=== PATIENT | female | born 1945 | race Caucasian/White ===

== ENCOUNTER 2017-02-05 03:20 | Emergency (ER) | payer OTHER ==
[~2017-02-05] VITALS: Ht 160 cm; Wt 111.9 kg
[~2017-02-05 03:20] MED LIST: AMLODIPINE BESY10 MG PO; ASPIRIN EC325 MG PO; CELECOXIB200 MG PO; EFFEXOR XR75 MG PO; HYDROCODON-ACE1 EAC7 PO; IRON325 M1 PO; KEFLEX500 MG PO; LO-DOSE ASPIRIN81 M1 PO; NORCO 5/3251 TABLET PO; TYLENOL EXTRA500 MG PO; XANAX0.5 MG PO
[2017-02-05] MEDS ORDERED: NORCO 5/3251 TABLET PO (04:09)
[2017-02-05] MEDS ORDERED: AMOXICILLIN500 MG PO (04:09)
[2017-02-05 04:31] VITALS: BP 180/104
== END 2017-02-05 04:39 | disposition home or self-care (01) ==
LOC: EME 03:20
DX: K04.7 Periapical abscess without sinus (principal)
CPT/HCPCS: 99281; 99283

== ENCOUNTER 2017-08-28 15:47 | Emergency (ER) | payer OTHER ==
[~2017-08-28] VITALS: Ht 160 cm; Wt 115.0 kg
[~2017-08-28 15:47] MED LIST changes: +AMOXICILLIN500 MG PO
[2017-08-28] MEDS ORDERED: PERCOCET 5/31 TABLET PO (20:11)
[2017-08-28 20:36] VITALS: BP 194/104
== END 2017-08-28 20:37 | disposition home or self-care (01) ==
LOC: EME 15:47
DX: S42.252A Displaced fracture of greater tuberosity of left humerus, initial encounter for closed fracture (principal); W18.2XXA Fall in (into) shower or empty bathtub, initial encounter; Y93.E1 Activity, personal bathing and showering; J45.909 Unspecified asthma, uncomplicated; F32.9 Major depressive disorder, single episode, unspecified; I10 Essential (primary) hypertension; Z96.651 Presence of right artificial knee joint
CPT/HCPCS: 73030; 99281; 99284